=== PATIENT | male | born 1980 | race African-American/Black ===

== ENCOUNTER 2020-06-03 13:31 | Emergency (ER) | payer OTHER ==
[~2020-06-03] VITALS: Ht 180.3 cm; Wt 97.5 kg
[2020-06-03] MEDS ORDERED: NAPROSYN500 MG PO (13:59)
[2020-06-03] MEDS ORDERED: CYCLOBENZAPRINE10 MG PO (14:01)
== END 2020-06-03 15:00 | disposition home or self-care (01) ==
LOC: FSED 13:48
DX: M54.5 Low back pain (principal)
CPT/HCPCS: 72100; 81003; 99283